=== PATIENT | male | born 1940 | race Caucasian/White ===

== ENCOUNTER 2018-04-09 12:02 | Inpatient (IN) | payer OTHER, MEDICARE ==
[~2018-04-09] VITALS: Ht 160 cm; Wt 73.8 kg
[2018-04-09 12:14] VITALS: BP 105/55; PULSE 67; RESP 20; TEMP 98.2; O2SAT 95
[2018-04-09 12:22] VITALS: BP 105/55; PULSE 67; RESP 20; TEMP 98.2; O2SAT 95
[2018-04-09] MEDS ORDERED: LORazepam 2 MG/ML VIAL IM ONE (13:00)
[2018-04-09 13:01] LABS: AUTOMATED NEUTROPHIL # 5.2 TH/MM3 (1.8-7.7); BASOPHIL # 0.1 TH/MM3 (0-0.2); BASOPHIL % 0.7 % (0.0-2.0); EOSINOPHIL # 1.1 TH/MM3 (0-0.4); HEMATOCRIT 42.4 % (39.0-51.0); HEMOGLOBIN 14.7 GM/DL (13.0-17.0); LYMPH % 23.6 % (9.0-44.0); LYMPHOCYTE # 2.2 TH/MM3 (1.0-4.8); MEAN CELL VOLUME 103.2 FL (80.0-100.0); MEAN CORPUSCULAR HEMOGLOBIN 35.7 PG (27.0-34.0); MEAN CORPUSCULAR HGB CONC 34.6 % (32.0-36.0); MEAN PLATELET VOLUME 6.8 FL (7.0-11.0); MONOCYTE # 0.6 TH/MM3 (0-0.9); NEUT % 56.7 % (16.0-70.0); PLATELET COUNT 221 TH/MM3 (150-450); RED CELL DISTRIBUTION WIDTH 14.2 % (11.6-17.2); WHITE BLOOD COUNT 9.1 TH/MM3 (4.0-11.0)
[2018-04-09] MEDS ORDERED: HALOPERIDOL LACTATE 5 MG/ML AMP IM ONE (13:15)
[2018-04-09 13:26] LABS: ALBUMIN 3.8 GM/DL (3.4-5.0); AST (GOT) 26 U/L (15-37); BICARBONATE 25.7 MEQ/L (21.0-32.0); BLOOD UREA NITROGEN 7 MG/DL (7-18); CALCIUM 8.8 MG/DL (8.5-10.1); CHLORIDE 107 MEQ/L (98-107); CREATININE 1.25 MG/DL (0.60-1.30); GLOMERULAR FILTRATION RATE 56 ML/MIN (>89); GLUCOSE,RANDOM 102 MG/DL (74-106); SODIUM (NA) 142 MEQ/L (136-145)
--- NOTE | 2018-04-09 13:28 | PD ---
HPI Chief Complaint: Psychiatric Symptoms Time Seen by Provider: 12:21 Travel History International Travel<30 days: No Contact w/Intl Traveler<30days: No Traveled to known affect area: No History of Present Illness HPI 77-year-old male that presents to the ED via police for Aguilar act. Patient himself is not a good historian and is very aggressive and will not cooperate with us. Patient apparently was Aguilar acted because he has been having episodes of possible dementia. Per the Aguilar act itself apparently patient tried to get money out of a bank account and no longer exists. Patient apparently also has been off his medications for about a month per report given by power of cartographic aide who is the stepdaughter. Apparently power of cartographic aide does not know what medications he takes. Patient apparently has been acting somewhat confused and will not collaborate with family and apparently there were trying to get him situated for possible placement but that will not take him because he has never been diagnosed with dementia. Patient himself voices no complaints and states that "I want to go home ". If he still anything else he curses at staff and does not seem to be wanting to cooperate. History is limited because of the patient's confusion and unwillingness to cooperate. Most of the history obtained is from the Aguilar act and from the report I was given by ED nurse from talking to the power of cartographic aide. PFSH Past Medical History Hx Anticoagulant Therapy: No Cardiovascular Problems: No Chemotherapy: No Cerebrovascular Accident: No Diabetes: No Respiratory: No Past Surgical History Hysterectomy: No Social History Alcohol Use: No Tobacco Use: No Substance Use: No Allergies-Medications (Allergen,Severity, Reaction): Coded Allergies: No Known Allergies (Verified Allergy, Unknown, 04/09/18) Review of Systems ROS Limitations: Uncooperative, Poor Historian Except as stated in HPI: all other systems reviewed are Neg Physical Exam Exam Limitations: Poor Historian, Uncooperative Narrative GENERAL: SKIN: Warm and dry. HEAD: Atraumatic. Normocephalic. EYES: Pupils equal and round. No scleral icterus. No injection or drainage. ENT: No nasal bleeding or discharge. Mucous membranes pink and moist. Tongue is midline. No uvula deviation. NECK: Trachea midline. No JVD. CARDIOVASCULAR: Regular rate and rhythm. No murmurs, S3, S4. RESPIRATORY: No accessory muscle use. Clear to auscultation. Breath sounds equal bilaterally. GASTROINTESTINAL: Abdomen soft, non-tender, nondistended. Hepatic and splenic margins not palpable. MUSCULOSKELETAL: Extremities without clubbing, cyanosis, or edema. No obvious deformities. Full range of motion of the upper and lower extremities bilaterally. 2+ pulses bilaterally. NEUROLOGICAL: Awake and alert and oriented to person and place. No obvious cranial nerve deficits. Motor grossly within normal limits. Five out of 5 muscle strength in the arms and legs. Normal speech. PSYCHIATRIC: Demented mood and affect; insight and judgment minimal Data Data Last Documented VS Vital Signs Date Time Temp Pulse Resp B/P (MAP) Pulse Ox O2 Delivery O2 Flow Rate FiO2 04/09/18 12:22 98.2 67 20 105/55 (72) 95 Room Air Orders Orders Complete Blood Count With Diff (04/09/18 12:48) Comprehensive Metabolic Panel (04/09/18 12:48) Thyroid Stimulating Hormone (04/09/18 12:48) Urinalysis - C+S If Indicated (04/09/18 12:48) Iv Access Insert/Monitor (04/09/18 12:48) Psych Screen (04/09/18 12:48) Drug Screen, Random Urine (04/09/18 12:48) Alcohol (Ethanol) (04/09/18 12:48) Ct Brain W/O Iv Contrast(Rout) (04/09/18 ) Lorazepam Inj (Ativan Inj) (04/09/18 13:00) ^ Sitter (04/09/18 13:02) Restraints Violent (04/09/18 13:08) Haloperidol Inj (Haldol Inj) (04/09/18 13:15) Labs Laboratory Tests Test 04/09/18 12:30 White Blood Count 9.1 TH/MM3 Red Blood Count 4.10 MIL/MM3 Hemoglobin 14.7 GM/DL Hematocrit 42.4 % Mean Corpuscular Volume 103.2 FL Mean Corpuscular Hemoglobin 35.7 PG Mean Corpuscular Hemoglobin Concent 34.6 % Red Cell Distribution Width 14.2 % Platelet Count 221 TH/MM3 Mean Platelet Volume 6.8 FL Neutrophils (%) (Auto) 56.7 % Lymphocytes (%) (Auto) 23.6 % Monocytes (%) (Auto) 7.0 % Eosinophils (%) (Auto) 12.0 % Basophils (%) (Auto) 0.7 % Neutrophils # (Auto) 5.2 TH/MM3 Lymphocytes # (Auto) 2.2 TH/MM3 Monocytes # (Auto) 0.6 TH/MM3 Eosinophils # (Auto) 1.1 TH/MM3 Basophils # (Auto) 0.1 TH/MM3 CBC Comment DIFF FINAL Differential Comment Blood Urea Nitrogen 7 MG/DL Creatinine 1.25 MG/DL Random Glucose 102 MG/DL Total Protein 8.2 GM/DL Albumin 3.8 GM/DL Calcium Level 8.8 MG/DL Alkaline Phosphatase 116 U/L Aspartate Amino Transf (AST/SGOT) 26 U/L Alanine Aminotransferase (ALT/SGPT) 21 U/L Total Bilirubin 1.4 MG/DL Sodium Level 142 MEQ/L Potassium Level 4.3 MEQ/L Chloride Level 107 MEQ/L Carbon Dioxide Level 25.7 MEQ/L Anion Gap 9 MEQ/L Estimat Glomerular Filtration Rate 56 ML/MIN Thyroid Stimulating Hormone 3rd Gen 3.390 uIU/ML Ethyl Alcohol Level LESS THAN 3 MG/DL MDM Medical Decision Making Medical Screen Exam Complete: Yes Emergency Medical Condition: Yes Medical Record Reviewed: Yes Interpretation(s) CBC & BMP Diagram 04/09/18 12:30 Total Protein 8.2, Albumin 3.8, Calcium Level 8.8, Alkaline Phosphatase 116, Aspartate Amino Transf (AST/SGOT) 26, Alanine Aminotransferase (ALT/SGPT) 21, Total Bilirubin 1.4 H alcohol negative Last Impressions Head CT 04/09/18 0000 Signed Impressions: CONCLUSION: 1. No acute infarct, acute hemorrhage, midline shift or extra-axial fluid heath ections. 2. Diffuse cerebral atrophy which is slightly worse on the left than the right . 3. Mild periventricular and subcortical white matter small vessel ischemic naila nges bilaterally. Differential Diagnosis Depression versus suicidal ideation versus anxiety versus adjustment disorder versus mood disorder versus bipolar disorder versus schizophrenia versus paranoid disorder versus psychosis versus substance abuse versus alcohol abuse versus alcohol induced psychosis versus homicidality addition versus cutting versus personality disorder Narrative Course 77-year-old male the presents to the ED for evaluation of Aguilar act. Patient was properly examined and was found to have signs and symptoms consistent with possible dementia. Patient has never been diagnosed with this. He does appear to be confused but is really hard to get any history from him as he himself will not collaborate with us and if his told something that is not to his liking he curses at staff. Patient unfortunately had to be restrained because he could not collaborate with us. He was given IV IM medications including Ativan and Haldol as per my attending Dr. Barbosa's recommendations. Labs were ordered. CT scan will be ordered to rule out any sign of acute medical condition causing the patient's symptoms although I believe that this is more likely related to dementia. Patient will be medically clear once labs and imaging came back. Labs and imaging were essentially unremarkable. Patient more cooperative after medications given. Restraints were removed. Okay to be seen by psych. Mental health screening was discussed with the patient. Diagnosis Primary Impression: Dementia with behavioral disturbance Qualified Codes: G30.9 - Alzheimer's disease, unspecified; F02.81 - Dementia in other diseases classified elsewhere with behavioral disturbance Hollis Man Apr 09, 2018 13:28
[2018-04-09 13:37] LABS: ALKALINE PHOSPHATASE 116 U/L (45-117); ALT (GPT) 21 U/L (12-78); TOTAL BILIRUBIN ADULT 1.4 MG/DL (0.2-1.0); TOTAL PROTEIN 8.2 GM/DL (6.4-8.2)
--- NOTE | 2018-04-09 14:46 | RADRPT ---
EXAM DATE: 04/09/2018 2:39 PM EDT AGE/SEX: 77 years / Male INDICATIONS: Altered mental status. CLINICAL DATA: This is the patient's initial encounter. Patient reports that signs and symptoms have been present for 1 day and indicates a pain score of Nonresponsive. MEDICAL/SURGICAL HISTORY: Non-responsive. Non-responsive. RADIATION DOSE: 66.35 CTDI (mGy) COMPARISON: No prior exams available for comparison. TECHNIQUE: CT of the head without contrast. Using automated exposure control and adjustment of the mA and/or kV according to patient size, radiation dose was kept as low as reasonably achievable to ob tain optimal diagnostic quality images. FINDINGS: Cerebrum: Diffuse cerebral atrophy is noted and is slightly worse on the left than the right. Mild p eriventricular and subcortical white matter small vessel ischemic changes are noted bilaterally. No e vidence of midline shift, mass lesion, hemorrhage or acute infarction. No extraaxial fluid collectio ns are seen. Posterior Fossa: The cerebellum and brainstem are intact. The 4th ventricle is midline. The cerebe llopontine angle is unremarkable. Extracranial: The visualized portion of the orbits is intact. Skull: The calvaria is intact. No evidence of skull fracture. CONCLUSION: 1. No acute infarct, acute hemorrhage, midline shift or extra-axial fluid collections. 2. Diffuse cerebral atrophy which is slightly worse on the left than the right. 3. Mild periventricular and subcortical white matter small vessel ischemic changes bilaterally. Electronically signed by: Favian Keane MD 04/09/2018 2:45 PM EDT
[2018-04-09 15:22] VITALS: BP 93/50; PULSE 59; RESP 18; O2SAT 95
[2018-04-09 17:45] VITALS: BP 91/45; PULSE 67; RESP 18; O2SAT 97
[2018-04-09 20:51] VITALS: BP 106/53; PULSE 65; RESP 16; O2SAT 96
[2018-04-09 23:00] VITALS: BP 108/53; PULSE 60; RESP 15; TEMP 97.5; O2SAT 92
[2018-04-09] MEDS ORDERED: hydrOXYzine HCL 50 MG TAB PO PRN (23:30)
[2018-04-09] MEDS ORDERED: ALUMINUM/MAGNESIUM/SIMETH 30 ML CUP PO PRN (23:30)
[2018-04-09] MEDS ORDERED: diphenhydrAMINE HCL 50 MG CAP - HS PRN PO (23:30)
[2018-04-09] MEDS ORDERED: ACETAMINOPHEN 325 MG TAB PO PRN (23:30)
[2018-04-09] MEDS ORDERED: diphenhydrAMINE HCL 50 MG/ML VIAL - HS PRN IM (23:30)
[2018-04-09] MEDS ORDERED: MAGNESIUM HYDROXIDE SUSP 30 ML CUP PO PRN (23:30)
[2018-04-10 06:06] VITALS: BP 132/63; PULSE 49; RESP 18; TEMP 98.6; O2SAT 94
[2018-04-10 07:26] LABS: BLOOD UREA NITROGEN 10 MG/DL (7-18); CALCIUM 8.3 MG/DL (8.5-10.1); CHLORIDE 107 MEQ/L (98-107); CHOLESTEROL 148 MG/DL (120-200); CREATININE 1.02 MG/DL (0.60-1.30); GLOMERULAR FILTRATION RATE 70 ML/MIN (>89); GLUCOSE,RANDOM 93 MG/DL (74-106); SODIUM (NA) 141 MEQ/L (136-145); TRIGLYCERIDES 156 MG/DL (42-150)
[2018-04-10 07:27] LABS: CHOLESTEROL/ HDL RATIO 6.54 RATIO; HDL CHOLESTEROL 22.6 MG/DL (40.0-60.0); LDL CHOLESTEROL 94 MG/DL (0-99)
[2018-04-10] MEDS: NICOTINE 21 MG/24 HR PATCH T-DERMAL SCH (08:49)
--- NOTE | 2018-04-10 11:46 | PD.CONS ---
HPI Service [facility] Hospitalists Consult Requested By Dr. Sanabria Reason for Consult Medical Management Primary Care Physician Unknown Diagnoses: History of Present Illness 77-year-old male with history of dementia admitted to inpatient psychiatry under Aguilar act after multiple episodes of confusion. Reportedly the patient drove himself to the bank, attempted to withdraw money out of a bank account that does not exist, then was unable to remember his home address, brought in by police. Hospitalist consulted for medical management. Patient is seen eating his lunch in the day room. He is oriented to self only and is unable to tell me the events leading up to his admission. He has no medical complaints including no headache, lightheadedness, dizziness, chest pain, palpitations, shortness of breath, abdominal pain, or urinary complaints. He denies any medical history. He denies taking any medications on a daily basis. He denies any prior surgeries. He states he quit smoking and drinking 40+ years ago. Vital signs reviewed and stable. He is tolerating oral intake. Discussed with RN, no acute concerns. Review of Systems ROS Limitations: Poor Historian Except as stated in HPI: all other systems reviewed are Neg Past Family Social History Allergies: Coded Allergies: No Known Allergies (Verified Allergy, Unknown, 04/09/18) Past Medical History Dementia Past Surgical History Patient denies any prior surgeries Reported Medications Patient denies taking any medications on a regular basis Active Ordered Medications Current Medications Medications (Trade) Dose Ordered Sig/Esther Route Start Time Stop Time Status Last Admin (Atarax) 50 mg Q6H PRN PO 04/09/18 23:30 (Benadryl) 50 mg HS PRN PO 04/09/18 23:30 (Benadryl Inj) 50 mg HS PRN IM 04/09/18 23:30 (Tylenol) 650 mg Q4H PRN PO 04/09/18 23:30 (Milk Of Magnesia Liq) 30 ml DAILY PRN PO 04/09/18 23:30 (Mag-Al Plus Susp Liq) 30 ml Q6H PRN PO 04/09/18 23:30 (Habitrol 21 Mg Patch.24 Hr) 1 patch DAILY T-DERMAL 04/10/18 09:00 Miscellaneous Information 1 HS T-DERMAL 04/10/18 21:00 Family History Father with heart disease, alcoholism, Mother of "old age", at age 84 Social History Prior tobacco use, quit 40+ years ago Prior heavy alcohol use, quit many years ago Denies any illicit drug use Physical Exam Vital Signs Vital Signs Date Time Temp Pulse Resp B/P (MAP) Pulse Ox O2 Delivery O2 Flow Rate FiO2 04/10/18 06:06 98.6 49 18 132/63 (86) 94 04/09/18 23:00 97.5 60 15 108/53 (71) 92 04/09/18 22:50 04/09/18 20:51 65 16 106/53 (70) 96 Room Air 04/09/18 17:45 67 18 91/45 (60) 97 Room Air 04/09/18 15:22 59 18 93/50 (64) 95 Room Air 04/09/18 12:22 98.2 67 20 105/55 (72) 95 Room Air 04/09/18 12:14 98.2 67 20 105/55 (72) 95 Physical Exam GENERAL: Well-nourished, well-developed pleasantly confused elderly male patient in [facility]. SKIN: Warm and dry. No rash. HEENT: Normocephalic. Atraumatic. Pupils equal and round. Mucous membranes pink and moist. NECK: Supple. Trachea midline. CARDIOVASCULAR: Regular rate and rhythm. No murmur appreciated. RESPIRATORY: No accessory muscle use. Clear to auscultation. Breath sounds equal bilaterally. GASTROINTESTINAL: Abdomen soft, non-tender, nondistended. Normoactive bowel sounds x4. MUSCULOSKELETAL: No obvious deformities. Extremities without clubbing, cyanosis , or edema. NEUROLOGICAL: Awake and alert, oriented to self only. No obvious cranial nerve deficits. Motor grossly within normal limits. Moving all extremities spontaneously. Normal speech. PSYCHIATRIC: Appropriate mood and affect; insight and judgment limited. Laboratory Laboratory Tests Test 04/09/18 12:30 04/10/18 06:45 White Blood Count 9.1 Red Blood Count 4.10 Hemoglobin 14.7 Hematocrit 42.4 Mean Corpuscular Volume 103.2 Mean Corpuscular Hemoglobin 35.7 Mean Corpuscular Hemoglobin Concent 34.6 Red Cell Distribution Width 14.2 Platelet Count 221 Mean Platelet Volume 6.8 Neutrophils (%) (Auto) 56.7 Lymphocytes (%) (Auto) 23.6 Monocytes (%) (Auto) 7.0 Eosinophils (%) (Auto) 12.0 Basophils (%) (Auto) 0.7 Neutrophils # (Auto) 5.2 Lymphocytes # (Auto) 2.2 Monocytes # (Auto) 0.6 Eosinophils # (Auto) 1.1 Basophils # (Auto) 0.1 CBC Comment DIFF FINAL Differential Comment Blood Urea Nitrogen 7 10 Creatinine 1.25 1.02 Random Glucose 102 93 Total Protein 8.2 Albumin 3.8 Calcium Level 8.8 8.3 Alkaline Phosphatase 116 Aspartate Amino Transf (AST/SGOT) 26 Alanine Aminotransferase (ALT/SGPT) 21 Total Bilirubin 1.4 Sodium Level 142 141 Potassium Level 4.3 4.1 Chloride Level 107 107 Carbon Dioxide Level 25.7 26.0 Anion Gap 9 8 Estimat Glomerular Filtration Rate 56 70 Thyroid Stimulating Hormone 3rd Gen 3.390 Ethyl Alcohol Level LESS THAN 3 Triglycerides Level 156 Cholesterol Level 148 LDL Cholesterol 94 HDL Cholesterol 22.6 Cholesterol/HDL Ratio 6.54 Result Diagram: 04/09/18 1230 04/10/18 0645 Imaging Last Impressions Head CT 04/09/18 0000 Signed Impressions: CONCLUSION: 1. No acute infarct, acute hemorrhage, midline shift or extra-axial fluid heath ections. 2. Diffuse cerebral atrophy which is slightly worse on the left than the right . 3. Mild periventricular and subcortical white matter small vessel ischemic naila nges bilaterally. Assessment and Plan Problem List: (1) Dementia with behavioral disturbance ICD Code: F03.91 - Unspecified dementia with behavioral disturbance Status: Acute Assessment and Plan 77-year-old male with history of dementia admitted to inpatient psychiatry under Be Here act after multiple episodes of confusion. Reportedly the patient drove himself to the bank, attempted to withdraw money out of a bank account that does not exist, then was unable to remember his home address, brought in by police. Hospitalist consulted for medical management. Dementia with behavioral disturbances: brought in under Be Here act -Head CT reviewed, no acute findings, shows diffuse cerebral atrophy, mild periventricular and subcortical white matter small vessel ischemic changes bilaterally -CBC, CMP, Etoh, TSH, reviewed and unremarkable -Check UA to rule out UTI -Overall appears medically stable -Continue management per psychiatry DVT Prophylaxis: patient is ambulatory Discussed Condition With Patient, RN Staci Barksdale PA-C Apr 10, 2018 11:46 am
[2018-04-10] MEDS ORDERED: hydrOXYzine HCL 50 MG TAB PO PRN (13:45)
[2018-04-10] MEDS ORDERED: diphenhydrAMINE HCL 50 MG CAP PO PRN (13:45)
--- NOTE | 2018-04-10 14:05 | HHI.HP ---
Provisional Diagnosis Admission Date Apr 09, 2018 at 22:34 [place]. Alzheimer's disease with late onset, dementia with behavioral disturbance Certification of Person's Competence To Provide Express and Informed Consent I have personally examined Lance Davila , a person being served at [facility] on, Apr 10, 2018 13:49. Express and informed consent means consent voluntarily given in writing, by a competent person, after sufficient explanation and disclosure of the subject matter involved to enable the person to make a knowing and willful decision without any element of force, fraud, deceit, duress, or other form of constraint or coercion. This person is 18 years of age or older, is not now known to be incompetent to consent to treatment with a guardian advocate, and does not have a health care surrogate or proxy currently making medical treatment decisions. I have found this person to be one of the following: [] Competent to provide express and informed consent, as defined above, for voluntary admission to this facility and is competent to provide express and informed consent for treatment. He/she has the consistent capacity to make well reasoned, willful, and knowing decisions concerning his or her medical or mental health treatment. The person fully and consistently understands the purpose of the admission for examination/placement and is fully capable of personally exercising all rights assured [place]xxx] Incompetent to provide express and informed consent to voluntary admission , and this is incompetent to provide express and informed consent to treatment. The person must be transferred to involuntary status and a petition for a guardian advocate filed with the Circuit Court. [] Refusing to provide express and informed consent to voluntary admission but is competent to provide express and informed consent for treatment. The person must be discharged or transferred to involuntary status. Form shall be completed within 24 hours of a person's arrival at the receiving facility and filed in the clinical record of each person: 1. Admitted on a voluntary basis 2. Permitted to provide express and informed consent to his/her own treatment 3. Allowed to transfer from involuntary to voluntary status 4. Prior to permitting a person to consent to his or her own treatment after having been previously found incompetent to consent to treatment. History of Present Illness Capacity: Lacks Capacity HPI Patient there is a 77-year-old white male comes here under a Aguilar act by the ED PD that document reviewed essentially is stating patient is trying signs of severe dementia to days in a row he drove himself to the [employer] to attempt to gets money from him and account which she does not exist he was unable to remember his home address or that he had already been to the [place] and spoke with officers he refused a voluntary evaluation and could not remember why the police were talking to him. Patient seen screen in the ED urine toxicology negative blood alcohol level negative. At the present time patient sitting quietly in the day room nurse Dana present throughout session. He is an alert diffusely confused short stocky balding white male who appears about his stated age. He does not remember the events surrounding his being Aguilar acted. He does acknowledge being 16 years being for a number of years to lady was his first but he was her second . There is children by her first marriage. It appears she is still in contact with them. Patient denies any prior psychiatric contact hospitalization psychotropic medication. Patient has a somewhat grandiose almost childlike response to things. He says in the past she was of fairly heavy alcohol user but stopped it cold turkey he states the past was a heavy tobacco user but stopped them cold turkey. He states she is in the [employer] in the 1950s but did not see combat. Denies any physical or sexual abuse. Denies any any mental health issues are his addictions in his family. At the present time patient does meet criteria for involuntary psychiatric hospitalization of the Aguilar act L the first opinion request second opinion. I feel he does not have capacity thus I will ask for health care surrogate and guardian advocate. We will have the hospitalist consult will S will have PT and OT consult will us. We will there is a document of a living will and surrogate and advanced healthcare directives for this gentleman it appears the advanced directives do call for DO NOT RESUSCITATE. Review of Systems Except as stated in HPI: all other systems reviewed are Neg Past Psych History Psychological trauma history Patient denies Violence risk - others (6 mos) Low Violence risk - self (6 mos) Low Substance Abuse History Drugs/Alcohol past 12 months Patient denies Past Family Social History Coded Allergies: No Known Allergies (Verified Allergy, Unknown, 04/09/18) No Active Prescriptions or Reported Meds Current Medications Medications (Trade) Dose Ordered Sig/Esther Route Start Time Stop Time Status Last Admin (Atarax) 50 mg Q6H PRN PO 04/09/18 23:30 (Benadryl) 50 mg HS PRN PO 04/09/18 23:30 (Benadryl Inj) 50 mg HS PRN IM 04/09/18 23:30 (Tylenol) 650 mg Q4H PRN PO 04/09/18 23:30 (Milk Of Magnesia Liq) 30 ml DAILY PRN PO 04/09/18 23:30 (Mag-Al Plus Susp Liq) 30 ml Q6H PRN PO 04/09/18 23:30 (Habitrol 21 Mg Patch.24 Hr) 1 patch DAILY T-DERMAL 04/10/18 09:00 Miscellaneous Information 1 HS T-DERMAL 04/10/18 21:00 Family Psych History Patient denies Social History Patient 18 years from his first he has stepchildren from his ' s first marriage Patient's Strengths (min. 2) Patient verbal able access healthcare Physical Exam Patient medically cleared ED exam reviewed and agreed with at the present time patient sitting quietly day room he is in no acute distress, is in no respiratory distress, no complaints of chest pain no complaints of abdominal pain patient moving all 4 extremities without difficulty Vital Signs Vital Signs Date Time Temp Pulse Resp B/P (MAP) Pulse Ox O2 Delivery O2 Flow Rate FiO2 04/10/18 06:06 98.6 49 18 132/63 (86) 94 04/09/18 20:51 Room Air I/O 04/10/18 04/10/18 04/11/18 08:00 16:00 00:00 Intake Total 120 ml 240 ml Balance 120 ml 240 ml Lab Results Test 04/10/18 06:45 Blood Urea Nitrogen 10 MG/DL Creatinine 1.02 MG/DL Random Glucose 93 MG/DL Calcium Level 8.3 MG/DL Sodium Level 141 MEQ/L Potassium Level 4.1 MEQ/L Chloride Level 107 MEQ/L Carbon Dioxide Level 26.0 MEQ/L Anion Gap 8 MEQ/L Estimat Glomerular Filtration Rate 70 ML/MIN Triglycerides Level 156 MG/DL Cholesterol Level 148 MG/DL LDL Cholesterol 94 MG/DL HDL Cholesterol 22.6 MG/DL Cholesterol/HDL Ratio 6.54 RATIO Mental Status Examination Appearance: Appropriate Consciousness: Alert Orientation: Person, Place (Vaguely confused), Date/Time (Vaguely confused) Motor Activity: Normal gait Speech: Unremarkable Language: Adequate Fund of Knowledge: Adequate Attention and Concentration: Other (Mildly) Memory: Impaired Mood: Other (Euthymic to somewhat irritable and dysphoric) Affect: Other (Slight decreased range and intensity) Thought Process & Associations: Disorganized Thought Content: Other (Somewhat paranoid) Hallucination Type: None Delusion Type: Paranoid Suicidal Ideation: No Suicidal Plan: No Suicidal Intention: No Homicidal Ideation: No Homicidal Plan: No Homicidal Intention: No Insight: Poor Judgment: Poor Assessment & Plan Problem List: (1) Alzheimer's disease with late onset ICD Codes: G30.1 - Alzheimer's disease with late onset; F02.80 - Dementia in other diseases classified elsewhere without behavioral disturbance (2) Dementia in other diseases classified elsewhere with behavioral disturbance ICD Codes: F02.81 - Dementia in other diseases classified elsewhere with behavioral disturbance Assessment & Plan Estimated LOS: 5-7 days at this time patient does meet criteria for involuntary psychiatric hospitalization on the Aguilar act. I will do first opinion request second opinion. I feel he does not have capacity we will ask for health care surrogate and guardian advocate. We will have hospitalist consult will S will have OT and PT consult will S Discharge Planning To be determined Request HC Surrog/Guard Advoc?: Yes Gene Sanabria MD Apr 10, 2018 14:05
[2018-04-10 16:25] LABS: HEMOGLOBIN A1C 5.6 % (4.3-6.0)
[2018-04-10] MEDS: REMOVE OLD NICOTINE PATCH T-DERMAL SCH (21:00)
[2018-04-11 06:00] VITALS: BP 110/58; PULSE 66; RESP 16; TEMP 97.5; TEMP 97.6; O2SAT 94
[2018-04-11] MEDS: NICOTINE 21 MG/24 HR PATCH T-DERMAL SCH (09:00)
--- NOTE | 2018-04-11 12:48 | HHI.PR ---
Subjective Remarks Follow-up visit for dementia and confusion. Spoke with nurse who does not report any medical concerns, ongoing confusion. Patient is seen and examined ambulating in the in no acute distress. He is asking when he will be able to leave states that he has a house, car, and stepchildren that he must attend to. He is alert and oriented only to self. He denies any dysuria, hematuria, denies any fevers, chills, nausea, vomiting, or diarrhea. Objective Vitals Vital Signs Date Time Temp Pulse Resp B/P (MAP) Pulse Ox O2 Delivery O2 Flow Rate FiO2 04/11/18 06:00 97.6 66 16 110/58 (75) 94 04/11/18 06:00 97.5 66 16 110/58 (75) 94 I/O 04/10/18 04/10/18 04/10/18 04/11/18 04/11/18 04/11/18 07:00 15:00 23:00 07:00 15:00 23:00 Intake Total 360 ml Balance 360 ml Intake Oral 360 ml Result Diagram: 04/09/18 1230 04/10/18 0645 Imaging Last Impressions Head CT 04/09/18 0000 Signed Impressions: CONCLUSION: 1. No acute infarct, acute hemorrhage, midline shift or extra-axial fluid heath ections. 2. Diffuse cerebral atrophy which is slightly worse on the left than the right . 3. Mild periventricular and subcortical white matter small vessel ischemic naila nges bilaterally. Objective Remarks GENERAL: Well-nourished elderly male in no acute distress SKIN: Warm and dry, no open wounds. HEENT: Atraumatic, pupils equal round reactive, mucous membranes moist. NECK: Supple, trachea midline. CARDIOVASCULAR: Regular rate and rhythm without murmurs. RESPIRATORY: Clear to auscultation in all lobes, no rhonchi or wheezes. GASTROINTESTINAL:+ Bowel sounds in all quadrants, abdomen nondistended, soft, no guarding. MUSCULOSKELETAL: Moving all extremities without difficulties, ambulating in the . NEUROLOGICAL: Awake, alert, oriented to self with confusion. No visible cranial nerve deficits, moving all extremities, speech is clear, no facial droop. PSYCHIATRIC: Calm and cooperative. A/P Problem List: (1) Dementia with behavioral disturbance ICD Code: F03.91 - Unspecified dementia with behavioral disturbance Status: Acute Assessment and Plan 77-year-old male with history of dementia admitted to inpatient psychiatry under [place] act after multiple episodes of confusion. Reportedly the patient drove himself to the bank, attempted to withdraw money out of a bank account that does not exist, then was unable to remember his home address, brought in by police. Hospitalist consulted for medical management. Dementia with behavioral disturbances: brought in under [place] act -Head CT reviewed, no acute findings, shows diffuse cerebral atrophy, mild periventricular and subcortical white matter small vessel ischemic changes bilaterally -CBC, CMP, Etoh, TSH, reviewed and unremarkable -Check UA to rule out UTI, order for nursing to collect urine -Overall appears medically stable -Continue management per psychiatry DVT Prophylaxis: patient is ambulatory Discussed with patient and nurse. Most likely will sign off, await urine culture as possible source of confusion. Genevieve Blackwell Apr 11, 2018 12:48
--- NOTE | 2018-04-11 15:01 | PD.PSY.CON ---
Provisional Diagnosis Admission Date Apr 09, 2018 at 22:34 [place]. Alzheimer's disease with late onset, dementia with behavioral disturbance History of Present Illness Service Psychiatry Consult Requested By Psychiatry Reason for Consult Second opinion Primary Care Physician Unknown HPI Patient there is a 77-year-old white male comes here under a [place] act by the ED PD that document reviewed essentially is stating patient is trying signs of severe dementia to days in a row he drove himself to the [employer] to attempt to gets money from him and account which she does not exist he was unable to remember his home address or that he had already been to the [employer] and spoke with officers he refused a voluntary evaluation and could not remember why the police were talking to him. Patient seen screen in the ED urine toxicology negative blood alcohol level negative. At the present time patient sitting quietly in the day room nurse Dana present throughout session. He is an alert diffusely confused short stocky balding white male who appears about his stated age. He does not remember the events surrounding his being [place] acted. He does acknowledge being 16 years being for a number of years to lady was his first but he was her second . There is children by her first marriage. It appears she is still in contact with them. Patient denies any prior psychiatric contact hospitalization psychotropic medication. Patient has a somewhat grandiose almost childlike response to things. He says in the past she was of fairly heavy alcohol user but stopped it cold turkey he states the past was a heavy tobacco user but stopped them cold turkey. He states she is in the [employer] in the 1950s but did not see combat. Denies any physical or sexual abuse. Denies any any mental health issues are his addictions in his family. At the present time patient does meet criteria for involuntary psychiatric hospitalization of the Aguilar act L the first opinion request second opinion. I feel he does not have capacity thus I will ask for health care surrogate and guardian advocate. We will have the hospitalist consult will S will have PT and OT consult will us. We will there is a document of a living will and surrogate and advanced healthcare directives for this gentleman it appears the advanced directives do call for DO NOT RESUSCITATE. The patient is a 77-year-old man, brought to the hospital on the Aguilar act because patient is trying signs of severe dementia to days in a row he drove himself to the [employer] to attempt to gets money from him and account which she does not exist he was unable to remember his home address or that he had already been to the [employer] and spoke with officers he refused a voluntary evaluation and could not remember why the police were talking to him. Consulted to me for second opinion. On psychiatric evaluation the patient is found the recreational area of the unit. Patient is calm, cooperative, pleasantly confused. He says that he is here displaced to be happy. He denies depression, denies anxiety, he is unable to tell me the date and the reason he was brought here. He denies suicidal and homicidal ideation, he denies visual and auditory hallucinations Past Family Social History Coded Allergies: No Known Allergies (Verified Allergy, Unknown, 04/09/18) No Active Prescriptions or Reported Meds Current Medications Medications (Trade) Dose Ordered Sig/Esther Route Start Time Stop Time Status Last Admin (Atarax) 50 mg Q6H PRN PO 04/09/18 23:30 (Benadryl) 50 mg HS PRN PO 04/09/18 23:30 (Benadryl Inj) 50 mg HS PRN IM 04/09/18 23:30 (Tylenol) 650 mg Q4H PRN PO 04/09/18 23:30 (Milk Of Magnesia Liq) 30 ml DAILY PRN PO 04/09/18 23:30 (Mag-Al Plus Susp Liq) 30 ml Q6H PRN PO 04/09/18 23:30 (Habitrol 21 Mg Patch.24 Hr) 1 patch DAILY T-DERMAL 04/10/18 09:00 Miscellaneous Information 1 HS T-DERMAL 04/10/18 21:00 Patient's Strengths (min. 2) Patient verbal able access healthcare Physical Exam Vital Signs Vital Signs Date Time Temp Pulse Resp B/P (MAP) Pulse Ox O2 Delivery O2 Flow Rate FiO2 04/11/18 06:00 97.6 66 16 110/58 (75) 94 04/09/18 20:51 Room Air I/O 04/11/18 04/11/18 04/12/18 08:00 16:00 00:00 Intake Total 240 ml Balance 240 ml Mental Status Examination Appearance: Appropriate Consciousness: Alert Orientation: Person, Place (Vaguely confused), Date/Time (Vaguely confused) Motor Activity: Normal gait Speech: Unremarkable Language: Adequate Fund of Knowledge: Adequate Attention and Concentration: Other (Mildly) Memory: Impaired Mood: Other (Euthymic to somewhat irritable and dysphoric) Affect: Other (Slight decreased range and intensity) Thought Process & Associations: Disorganized Thought Content: Other (Somewhat paranoid) Hallucination Type: None Delusion Type: Paranoid Suicidal Ideation: No Suicidal Plan: No Suicidal Intention: No Homicidal Ideation: No Homicidal Plan: No Homicidal Intention: No Insight: Poor Judgment: Poor Assessment & Plan Problem List: (1) Alzheimer's disease with late onset ICD Codes: G30.1 - Alzheimer's disease with late onset; F02.80 - Dementia in other diseases classified elsewhere without behavioral disturbance (2) Dementia in other diseases classified elsewhere with behavioral disturbance ICD Codes: F02.81 - Dementia in other diseases classified elsewhere with behavioral disturbance Assessment & Plan: I have seen and examined this patient, reviewed documentation, I agree and concur with Dr. Sanabria's assessment and plan. Consult appreciated. Assessment & Plan Estimated LOS: days Request HC Surrog/Guard Advoc?: Yes Kev Simon MD Apr 11, 2018 15:01
[2018-04-11 15:39] LABS: BILIRUBIN, URINE NEG (NEG); BLOOD, URINE NEG (NEG); GLUCOSE,URINE NEG (NEG); KETONE, URINE NEG (NEG); MUCUS URINE FEW /lpf (OCC); NITRITE,URINE NEG (NEG); URINE COLOR Straw (YELLW/STRAW); URINE LEUKOCYTE ESTERASE NEG (NEG)
--- NOTE | 2018-04-11 16:18 | HHI.PYPN ---
Subjective Remarks Patient is seen in day room with medical student Margoth, chart reviewed, patient continues with a somewhat elevated mood intrusive with intense eye contact, appears she is trying to justify his poor memory by saying he voluntarily gave up his memory for days dates and locations etc. So he can just react to things we will add Seroquel 25 mg 9 AM and 2 PM Review of Systems Except as stated in HPI: all other systems reviewed are Neg Mental Status Examination Appearance: Appropriate Consciousness: Alert Orientation: Person, Place (Vaguely confused), Date/Time (Vaguely confused) Motor Activity: Normal gait Speech: Unremarkable Language: Adequate Fund of Knowledge: Adequate Attention and Concentration: Other (Mildly) Memory: Impaired Mood: Other (Euthymic to somewhat irritable and dysphoric) Affect: Other (Slight decreased range and intensity) Thought Process & Associations: Disorganized Thought Content: Other (Somewhat paranoid) Hallucination Type: None Delusion Type: Paranoid Suicidal Ideation: No Suicidal Plan: No Suicidal Intention: No Homicidal Ideation: No Homicidal Plan: No Homicidal Intention: No Insight: Poor Judgment: Poor Results Labs Test 04/11/18 14:15 Urine Color Straw Urine Turbidity CLEAR Urine pH 5.0 Urine Specific [place] 1.004 Urine Protein NEG mg/dL Urine Glucose (UA) NEG mg/dL Urine Ketones NEG mg/dL Urine Occult Blood NEG Urine Nitrite NEG Urine Bilirubin NEG Urine Leukocyte Esterase NEG Urine RBC LESS THAN 1 /hpf Urine WBC LESS THAN 1 /hpf Urine Mucus FEW /lpf Microscopic Urinalysis Comment CULT NOT INDICATED Urine Opiates Screen NEG Urine Barbiturates Screen NEG Urine Amphetamines Screen NEG Urine Benzodiazepines Screen NEG Urine Cocaine Screen NEG Urine Cannabinoids Screen NEG Vitals/IOs Vital Signs Date Time Temp Pulse Resp B/P (MAP) Pulse Ox O2 Delivery O2 Flow Rate FiO2 04/11/18 06:00 97.6 66 16 110/58 (75) 94 04/09/18 20:51 Room Air Intake and Output 04/11/18 04/11/18 04/12/18 08:00 16:00 00:00 Intake Total 240 ml Balance 240 ml Assessment & Plan Problem List: (1) Alzheimer's disease with late onset ICD Codes: G30.1 - Alzheimer's disease with late onset; F02.80 - Dementia in other diseases classified elsewhere without behavioral disturbance (2) Dementia in other diseases classified elsewhere with behavioral disturbance ICD Codes: F02.81 - Dementia in other diseases classified elsewhere with behavioral disturbance Assessment & Plan Estimated LOS: days patient continues demented intrusive with no insight, making a somewhat unique justification for his loss of memory. We will add Seroquel to the medication regimen Justification for Cont. Inpt. At this time patient would decompensate a place to a lower level of care Discharge Planning To be determined Request HC Surrog/Guard Advoc?: Yes Gene Sanabria MD Apr 11, 2018 16:18
[2018-04-11] MEDS: REMOVE OLD NICOTINE PATCH T-DERMAL SCH (20:31)
[2018-04-12 05:55] VITALS: BP 117/64; PULSE 76; RESP 17; TEMP 97.7; O2SAT 91
[2018-04-12] MEDS: QUEtiapine FUMARATE 25 MG TAB PO SCH ×2 (09:13→14:09)
[2018-04-12] MEDS: NICOTINE 21 MG/24 HR PATCH T-DERMAL SCH (09:13)
--- NOTE | 2018-04-12 11:03 | HHI.PR ---
Subjective Remarks Follow-up visit for dementia and confusion. Patient is seen and examined resting in bed, in no acute distress. Denies any pain, fevers, chills, N/V/D, headache, dizziness or cough. He voices no acute concerns or complaints. Objective Vitals Vital Signs Date Time Temp Pulse Resp B/P (MAP) Pulse Ox O2 Delivery O2 Flow Rate FiO2 04/12/18 05:55 97.7 76 17 117/64 (81) 91 I/O 04/11/18 04/11/18 04/11/18 04/12/18 04/12/18 04/12/18 07:00 15:00 23:00 07:00 15:00 23:00 Intake Total 240 ml 240 ml 360 ml Balance 240 ml 240 ml 360 ml Intake Oral 240 ml 240 ml 360 ml Result Diagram: 04/09/18 1230 04/10/18 0645 Imaging Last Impressions Head CT 04/09/18 0000 Signed Impressions: CONCLUSION: 1. No acute infarct, acute hemorrhage, midline shift or extra-axial fluid heath ections. 2. Diffuse cerebral atrophy which is slightly worse on the left than the right . 3. Mild periventricular and subcortical white matter small vessel ischemic naila nges bilaterally. Objective Remarks GENERAL: Well-nourished elderly male in no acute distress SKIN: Warm and dry. HEENT: Atraumatic, pupils equal round, mucous membranes moist. NECK: Trachea midline. CARDIOVASCULAR: Regular rate and rhythm without murmurs. RESPIRATORY: Clear to auscultation in all lobes, no rhonchi or wheezes. GASTROINTESTINAL:+ Bowel sounds in all quadrants, abdomen nondistended, soft. MUSCULOSKELETAL: Moving all extremities without difficulties. NEUROLOGICAL: Awake, alert with confusion. No visible cranial nerve deficits, moving all extremities, speech is clear, no facial droop. PSYCHIATRIC: Calm and cooperative. A/P Problem List: (1) Dementia with behavioral disturbance ICD Code: F03.91 - Unspecified dementia with behavioral disturbance Status: Acute Assessment and Plan 77-year-old male with history of dementia admitted to inpatient psychiatry under [place] act after multiple episodes of confusion. Reportedly the patient drove himself to the bank, attempted to withdraw money out of a bank account that does not exist, then was unable to remember his home address, brought in by police. Hospitalist consulted for medical management. Dementia with behavioral disturbances: brought in under [place] act -Head CT reviewed, no acute findings, shows diffuse cerebral atrophy, mild periventricular and subcortical white matter small vessel ischemic changes bilaterally -CBC, CMP, Etoh, TSH, reviewed and unremarkable -UA negative -Continue management per psychiatry DVT Prophylaxis: patient is ambulatory Discussed with patient and nurse. [facility] will sign off, please reconsult if needed. Thank you. Genevieve Blackwell Apr 12, 2018 11:03
--- NOTE | 2018-04-12 16:05 | HHI.PYPN ---
Subjective Remarks Reviewed electronic medical records, and discussed case with staff. Follow-up was conducted in patient's room with KENNETH Kim present. Patient was found sitting in his chair. When asked why he was admitted to the hospital he states , "I cannot remember but it stunk". When asked how he slept he reports that he cannot remember. He states that he has "not had much of an appetite" but cannot recall why. Consent was obtained for his medications today. He begrudgingly agreed to comply with them. Mental Status Examination Appearance: Appropriate Consciousness: Alert Orientation: Person, Place (Vaguely confused), Date/Time (Vaguely confused) Motor Activity: Normal gait Speech: Unremarkable Language: Adequate Fund of Knowledge: Adequate Attention and Concentration: Other (Mildly) Memory: Impaired Mood: Other (Euthymic to somewhat irritable and dysphoric) Affect: Other (Slight decreased range and intensity) Thought Process & Associations: Disorganized Thought Content: Other (Somewhat paranoid) Hallucination Type: None Delusion Type: Paranoid Suicidal Ideation: No Suicidal Plan: No Suicidal Intention: No Homicidal Ideation: No Homicidal Plan: No Homicidal Intention: No Insight: Poor Judgment: Poor Results Vitals/IOs Vital Signs Date Time Temp Pulse Resp B/P (MAP) Pulse Ox O2 Delivery O2 Flow Rate FiO2 04/12/18 05:55 97.7 76 17 117/64 (81) 91 04/09/18 20:51 Room Air Intake and Output 04/12/18 04/12/18 04/13/18 08:00 16:00 00:00 Intake Total 1200 ml Balance 1200 ml Assessment & Plan Problem List: (1) Alzheimer's disease with late onset ICD Codes: G30.1 - Alzheimer's disease with late onset; F02.80 - Dementia in other diseases classified elsewhere without behavioral disturbance (2) Dementia in other diseases classified elsewhere with behavioral disturbance ICD Codes: F02.81 - Dementia in other diseases classified elsewhere with behavioral disturbance Assessment & Plan Estimated LOS: Patient remains confused. Medication initiated today. Will monitor for improvement in his condition. Days Justification for Cont. Inpt. Moving this patient to a lower level of care would result in decompensation. Discharge planning in progress. Request HC Surrog/Guard Advoc?: Yes Kallie Rowe Apr 12, 2018 16:05
[2018-04-12] MEDS: REMOVE OLD NICOTINE PATCH T-DERMAL SCH (20:57)
[2018-04-13 05:23] VITALS: BP 105/56; PULSE 62; RESP 16; TEMP 98.1; O2SAT 90
[2018-04-13] MEDS: QUEtiapine FUMARATE 25 MG TAB PO SCH ×3 (08:39→13:52)
[2018-04-13] MEDS: NICOTINE 21 MG/24 HR PATCH T-DERMAL SCH (08:39)
--- NOTE | 2018-04-13 15:53 | HHI.PYPN ---
Subjective Remarks Patient was seen and case discussed with nursing. Patient is alert and oriented 1. Per nursing, he was quite agitated this morning. During my interviews initially pleasant but then becomes perseverative on discharge. Insight is quite poor though process is disorganized Mental Status Examination Appearance: Appropriate Consciousness: Alert Orientation: Person Motor Activity: Normal gait Speech: Unremarkable Language: Adequate Fund of Knowledge: Adequate Attention and Concentration: Other (Mildly) Memory: Impaired Mood: Other (Euthymic to somewhat irritable and dysphoric) Affect: Other (Slight decreased range and intensity) Thought Process & Associations: Disorganized Thought Content: Other (Somewhat paranoid) Hallucination Type: None Delusion Type: Paranoid Suicidal Ideation: No Suicidal Plan: No Suicidal Intention: No Homicidal Ideation: No Homicidal Plan: No Homicidal Intention: No Insight: Poor Judgment: Poor Results Vitals/IOs Vital Signs Date Time Temp Pulse Resp B/P (MAP) Pulse Ox O2 Delivery O2 Flow Rate FiO2 04/13/18 05:23 98.1 62 16 105/56 (72) 90 04/09/18 20:51 Room Air Intake and Output 04/13/18 04/13/18 04/14/18 08:00 16:00 00:00 Intake Total 120 ml Balance 120 ml Assessment & Plan Problem List: (1) Alzheimer's disease with late onset ICD Codes: G30.1 - Alzheimer's disease with late onset; F02.80 - Dementia in other diseases classified elsewhere without behavioral disturbance (2) Dementia in other diseases classified elsewhere with behavioral disturbance ICD Codes: F02.81 - Dementia in other diseases classified elsewhere with behavioral disturbance Assessment & Plan Continue current treatment plan Justification for Cont. Inpt. Patient would decompensate in a less restrictive setting Request HC Surrog/Guard Advoc?: Yes Mekhi Hankins DO Apr 13, 2018 15:53
[2018-04-13 18:00] VITALS: BP 128/59; PULSE 68; RESP 16; TEMP 98.7; O2SAT 92
[2018-04-13] MEDS: REMOVE OLD NICOTINE PATCH T-DERMAL SCH (20:31)
[2018-04-14 06:55] VITALS: BP 127/61; PULSE 62; RESP 18; TEMP 97.6; O2SAT 91
[2018-04-14] MEDS: QUEtiapine FUMARATE 25 MG TAB PO SCH ×2 (08:19→13:02)
[2018-04-14] MEDS: NICOTINE 21 MG/24 HR PATCH T-DERMAL SCH (08:19)
--- NOTE | 2018-04-14 12:47 | HHI.PYPN ---
Subjective Remarks Patient was seen and case discussed with nursing. Patient is alert and oriented 2. He is very animated and makes various jokes about himself and the patients around him. He is very perseverative about discharge and becomes angry. Supportive therapy and psychoeducation is not effective concerning the reason for his stay in the circumstances surrounding his admission. Memory is impaired. Compliant with medications Mental Status Examination Appearance: Appropriate Consciousness: Alert Orientation: Person Motor Activity: Normal gait Speech: Unremarkable Language: Adequate Fund of Knowledge: Adequate Attention and Concentration: Other (Mildly) Memory: Impaired Mood: Angry Affect: Irritable Thought Process & Associations: Disorganized Thought Content: Other (Somewhat paranoid) Hallucination Type: None Delusion Type: Paranoid Suicidal Ideation: No Suicidal Plan: No Suicidal Intention: No Homicidal Ideation: No Homicidal Plan: No Homicidal Intention: No Insight: Poor Judgment: Poor Results Vitals/IOs Vital Signs Date Time Temp Pulse Resp B/P (MAP) Pulse Ox O2 Delivery O2 Flow Rate FiO2 04/14/18 06:55 97.6 62 18 127/61 (83) 91 Assessment & Plan Problem List: (1) Alzheimer's disease with late onset ICD Codes: G30.1 - Alzheimer's disease with late onset; F02.80 - Dementia in other diseases classified elsewhere without behavioral disturbance (2) Dementia in other diseases classified elsewhere with behavioral disturbance ICD Codes: F02.81 - Dementia in other diseases classified elsewhere with behavioral disturbance Assessment & Plan Continue current treatment plan Justification for Cont. Inpt. Patient would decompensate in a less restrictive setting Request HC Surrog/Guard Advoc?: Yes Mekhi Hankins DO Apr 14, 2018 12:47
[2018-04-14 17:05] VITALS: BP 122/71; PULSE 86; RESP 16; TEMP 97.4; O2SAT 93
[2018-04-14] MEDS: REMOVE OLD NICOTINE PATCH T-DERMAL SCH (20:17)
[2018-04-15] MEDS ORDERED: LORazepam 2 MG/ML VIAL IM ONE (02:00)
[2018-04-15] MEDS ORDERED: HALOPERIDOL LACTATE 5 MG/ML AMP IM ONE (02:00)
[2018-04-15 06:09] VITALS: BP 123/66; PULSE 73; RESP 17; TEMP 97.7; O2SAT 91
[2018-04-15] MEDS: QUEtiapine FUMARATE 25 MG TAB PO SCH ×3 (08:29→20:00)
[2018-04-15] MEDS: NICOTINE 21 MG/24 HR PATCH T-DERMAL SCH (09:00)
--- NOTE | 2018-04-15 16:24 | HHI.PYPN ---
Subjective Remarks Patient seen with nurse Mari, chart reviewed, patient compliant medication. Patient seen in his room napping and drowsy but arousable to responses continues diffusely confused and disoriented, it appears patient had some out of control behavior last night sustaining an DTO. We will increase scheduled Seroquel to 25 mg 3 times daily Review of Systems Except as stated in HPI: all other systems reviewed are Neg Mental Status Examination Appearance: Appropriate Consciousness: Alert Orientation: Person Motor Activity: Normal gait Speech: Unremarkable Language: Adequate Fund of Knowledge: Adequate Attention and Concentration: Other (Mildly) Memory: Impaired Mood: Angry Affect: Irritable Thought Process & Associations: Disorganized Thought Content: Other (Somewhat paranoid) Hallucination Type: None Delusion Type: Paranoid Suicidal Ideation: No Suicidal Plan: No Suicidal Intention: No Homicidal Ideation: No Homicidal Plan: No Homicidal Intention: No Insight: Poor Judgment: Poor Results Vitals/IOs Vital Signs Date Time Temp Pulse Resp B/P (MAP) Pulse Ox O2 Delivery O2 Flow Rate FiO2 04/15/18 06:09 97.7 73 17 123/66 (85) 91 Intake and Output 04/15/18 04/15/18 04/16/18 08:00 16:00 00:00 Intake Total 240 ml Balance 240 ml Assessment & Plan Problem List: (1) Alzheimer's disease with late onset ICD Codes: G30.1 - Alzheimer's disease with late onset; F02.80 - Dementia in other diseases classified elsewhere without behavioral disturbance (2) Dementia in other diseases classified elsewhere with behavioral disturbance ICD Codes: F02.81 - Dementia in other diseases classified elsewhere with behavioral disturbance Assessment & Plan Estimated LOS: days patient continues diffusely confused disoriented demented, we will some increased behavioral issues at night she medication adjustment above Justification for Cont. Inpt. At this time patient would decompensate a place to the lower level of care Discharge Planning To be determined Request HC Surrog/Guard Advoc?: Yes Gene Sanabria MD Apr 15, 2018 16:24
[2018-04-15 18:57] VITALS: BP 122/71; PULSE 65; RESP 16; TEMP 97.6; O2SAT 90
[2018-04-15] MEDS: REMOVE OLD NICOTINE PATCH T-DERMAL SCH (21:00)
[2018-04-16 06:50] VITALS: BP 98/57; PULSE 92; RESP 16; TEMP 97.3
[2018-04-16] MEDS: NICOTINE 21 MG/24 HR PATCH T-DERMAL SCH (09:00)
[2018-04-16] MEDS: QUEtiapine FUMARATE 25 MG TAB PO SCH (09:00)
[2018-04-16] MEDS ORDERED: SERO25TA PO (11:33)
--- NOTE | 2018-04-16 11:35 | HHI.DS ---
Psychiatry Discharge Summary Inpatient Psychiatric care?: Yes Advance Directive: Yes Mental Health AdvanceDirective: No Health Care Proxy: No Admission Admission Date Apr 09, 2018 at 22:34 Admission Diagnosis: (1) Alzheimer's disease with late onset ICD Code: G30.1 - Alzheimer's disease with late onset; F02.80 - Dementia in other diseases classified elsewhere without behavioral disturbance (2) Dementia in other diseases classified elsewhere with behavioral disturbance ICD Code: F02.81 - Dementia in other diseases classified elsewhere with behavioral disturbance Brief History Patient there is a 77-year-old white male comes here under a Aguilar act by the ED PD that document reviewed essentially is stating patient is trying signs of severe dementia to days in a row he drove himself to the [employer] to attempt to gets money from him and account which she does not exist he was unable to remember his home address or that he had already been to the [facility] and spoke with officers he refused a voluntary evaluation and could not remember why the police were talking to him. Patient seen screen in the ED urine toxicology negative blood alcohol level negative. At the present time patient sitting quietly in the day room nurse Dana present throughout session. He is an alert diffusely confused short stocky balding white male who appears about his stated age. He does not remember the events surrounding his being Aguilar acted. He does acknowledge being 16 years being for a number of years to lady was his first but he was her second . There is children by her first marriage. It appears she is still in contact with them. Patient denies any prior psychiatric contact hospitalization psychotropic medication. Patient has a somewhat grandiose almost childlike response to things. He says in the past she was of fairly heavy alcohol user but stopped it cold turkey he states the past was a heavy tobacco user but stopped them cold turkey. He states she is in the [employer] in the 1950s but did not see combat. Denies any physical or sexual abuse. Denies any any mental health issues are his addictions in his family. At the present time patient does meet criteria for involuntary psychiatric hospitalization of the Aguilar act L the first opinion request second opinion. I feel he does not have capacity thus I will ask for health care surrogate and guardian advocate. We will have the hospitalist consult will S will have PT and OT consult will us. We will there is a document of a living will and surrogate and advanced healthcare directives for this gentleman it appears the advanced directives do call for DO NOT RESUSCITATE. The patient is a 77-year-old man, brought to the hospital on the Aguilar act because patient is trying signs of severe dementia to days in a row he drove himself to the [employer] to attempt to gets money from him and account which she does not exist he was unable to remember his home address or that he had already been to the [facility] and spoke with officers he refused a voluntary evaluation and could not remember why the police were talking to him. Consulted to me for second opinion. On psychiatric evaluation the patient is found the recreational area of the unit. Patient is calm, cooperative, pleasantly confused. He says that he is here displaced to be happy. He denies depression, denies anxiety, he is unable to tell me the date and the reason he was brought here. He denies suicidal and homicidal ideation, he denies visual and auditory hallucinations Tobacco Use In Past 30 Days: No Tobacco Past 30 Days Alcohol Use: Never Hospital Course Patient of course in the hospital was somewhat uneventful there is some irritability mild paranoia and intrusiveness initially with that that softened with us compliance with medication. His cognitive deficits have not changed remains diffusely disoriented to time place and situation. However is no significant behavioral issues. He is a bed available from today if the emergency [facility]. Patient to be discharged today to that facility with Rx times a month to follow-up services through that facility Results Blood Pressure 98 / 57 Vital Signs Date Time Temp Pulse Resp B/P (MAP) Pulse Ox O2 Delivery O2 Flow Rate FiO2 04/16/18 06:50 97.3 92 16 98/57 (71) 04/15/18 18:57 90 Laboratory Results Test 04/10/18 06:45 Cholesterol Level 148 MG/DL (120-200) HDL Cholesterol 22.6 MG/DL (40.0-60.0) Hemoglobin A1c 5.6 % (4.3-6.0) LDL Cholesterol 94 MG/DL (0-99) Triglycerides Level 156 MG/DL (42-150) Summary of Procedures None done Imaging Last Impressions Head CT 04/09/18 0000 Signed Impressions: CONCLUSION: 1. No acute infarct, acute hemorrhage, midline shift or extra-axial fluid heath ections. 2. Diffuse cerebral atrophy which is slightly worse on the left than the right . 3. Mild periventricular and subcortical white matter small vessel ischemic naila nges bilaterally. Pending results at discharge: No Medications # of Antipsychotic meds at D/C: 1 Approp Antipsych med options 1 - Minimum of three failed multiple trials of monotherapy. 2 - Documented plan to taper to monotherapy due to previous use of multiple meds OR cross-taper in progress at D/C. 3 - Documentation of augmentation of Clozapine. 4 - Justification other than those listed in allowable values 1-3, document here : Discharge Discharge Date: Apr 16, 2018 Discharge Diagnosis: (1) Dementia in other diseases classified elsewhere with behavioral disturbance Diagnosis: Principal ICD Code: F02.81 - Dementia in other diseases classified elsewhere with behavioral disturbance (2) Alzheimer's disease with late onset Diagnosis: Principal ICD Code: G30.1 - Alzheimer's disease with late onset; F02.80 - Dementia in other diseases classified elsewhere without behavioral disturbance Pt Condition on Discharge: Stable Discharge Disposition: [facility] Discharge Instructions Diet Instructions: As Tolerated, No Restrictions Activities you can perform: Regular-No Restrictions Scheduled Appointment: [facility] Discharge Time > 30 minutes Mental Status Examination Appearance: Appropriate Consciousness: Alert Orientation: Person Motor Activity: Normal gait Speech: Unremarkable Language: Adequate Fund of Knowledge: Adequate Attention and Concentration: Other (Mildly) Memory: Impaired Mood: Angry Affect: Irritable Thought Process & Associations: Disorganized Thought Content: Other (Somewhat paranoid) Hallucination Type: None Delusion Type: Paranoid Suicidal Ideation: No Suicidal Plan: No Suicidal Intention: No Homicidal Ideation: No Homicidal Plan: No Homicidal Intention: No Insight: Poor Judgment: Poor Discharge/Advance Care Plan Health Problems: (1) Alzheimer's disease with late onset (2) Dementia in other diseases classified elsewhere with behavioral disturbance Goals to promote your health * To prevent worsening of your condition and complications * To maintain your health at the optimal level Directions to meet your goals Take your medications as prescribed Follow your dietary instruction Follow activity as directed Keep your appointments as scheduled Take your immunizations and boosters as scheduled If your symptoms worsen call your PCP, if no PCP go to Urgent Care Center or Emergency Room For 21/05 questions related to your inpatient stay or results of tests pending at discharge, please contact Dr. Gene Sanabria at Smoking is Dangerous to Your Health. Avoid second hand smoking Gene Sanabria MD Apr 16, 2018 11:35
== END 2018-04-16 12:40 | DRG 57 ==
LOC: NEPE 12:02 → NEDA 22:34 → H250 23:00
PROVIDERS: ADMIT Psychiatry & Neurology Psychiatry; ATTEND Psychiatry & Neurology Psychiatry
DX: G30.1 Alzheimer's disease with late onset (principal); F02.81 Dementia in other diseases classified elsewhere, unspecified severity, with behavioral disturbance; Z66 Do not resuscitate; Z82.49 Family history of ischemic heart disease and other diseases of the circulatory system
CPT/HCPCS: 70450; 80048; 80053; 80061; 80307; 81001; 83036; 84443; 85025; 96372; J1630; J2060

== ENCOUNTER 2018-04-17 14:24 | Inpatient (IN) ==
[2018-04-28] MEDS ORDERED: Acetaminophen 325 MG Tablet PO PRN (07:49)
[2018-04-28] MEDS ORDERED: Aluminum/Magnesium/Simethacone Susp 30 ML UDC PO PRN (07:51)
[2018-04-28] MEDS ORDERED: Sod Chloride 0.9% Inj 1,000 ML IV.SIG SCH (08:00)
[2018-04-28] MEDS ORDERED: Furosemide 20 MG Tablet PO SCH (09:00)
[2018-04-28] MEDS: QUEtiapine 25 MG Tablet PO SCH ×3 (13:35→21:01)
--- NOTE | 2018-04-28 17:46 | P.PNPSY ---
Subjective Remarks: Patient was seen and case discussed with nursing. Patient was labile this morning. He is alert and oriented 1. Complaining of mild back pain. Has not needed any ETO's today. Mood today is "terrible." Denies auditory or visual hallucinations Mental Status Examination Appearance: Appropriate Consciousness: Somnolent Orientation: Person Motor Activity: Normal gait Speech: Unremarkable Language: Adequate Fund of Knowledge: Inadequate Attention and Concentration: Easily distracted Memory: Impaired Mood: Appropriate Affect: Labile Thought Process & Associations: Intact, Disorganized Thought Content: Appropriate Hallucination Type: None Delusion Type: None Suicidal Ideation: No Suicidal Plan: No Suicidal Intention: No Homicidal Ideation: No Homicidal Plan: No Homicidal Intention: No Insight: Poor Judgment: Poor Assessment and Plan - Assessment (1) Alzheimer's disease with late onset Code(s): G30.1 - Alzheimer's disease with late onset; F02.80 - Dementia in other diseases classified elsewhere without behavioral disturbance Status: Acute (2) Dementia in other diseases classified elsewhere with behavioral disturbance Code(s): F02.81 - Dementia in other diseases classified elsewhere with behavioral disturbance Status: Acute - Plan Plan: Estimated LOS: [] days Continue current treatment plan Justification for Continued Inpatient Stay: Patient would decompensate in a less restrictive setting
[2018-04-29] MEDS: QUEtiapine 25 MG Tablet PO SCH ×2 (13:15→20:20)
--- NOTE | 2018-04-29 16:55 | P.PNPSY ---
Subjective Remarks: Patient seen and examined with nurse in coverage for Dr. Sanabria. Chart reviewed. Case discussed with nursing staff. Nursing notes that patient's Seroquel dosing is loaded towards the afternoon and evening. Patient was consequently somewhat sedated this morning and his O2 sat dipped to 87%. On my examination today, the patient is calm and ambulating around the unit. I note an area of ecchymosis underneath his right eye, and the nurse reports that this was present at admission. Patient is confused and oriented to person only. He gives the year as 202. No side effects from medications, besides some possible sedation earlier in the day. No physical complaints. Vital Signs Temp Pulse Resp BP Pulse Ox 04/29/18 09:51 16 04/29/18 09:00 96 H 14 97 04/29/18 06:05 97.6 F 77 15 104/61 87 L 04/28/18 20:00 18 04/28/18 18:29 98.6 F 80 18 122/72 95 Intake and Output 04/29/18 04/29/18 04/29/18 06:59 14:59 22:59 Intake Total 960 / 960 Balance 960 / 960 Intake: Oral 960 / 960 Other: # Voids 3 2 Labs reviewed. Review of Systems other (Limited due to mental condition) Mental Status Examination Appearance: Appropriate Consciousness: Alert Orientation: Person Motor Activity: Normal gait, Other (No motor abnormalities noted) Speech: Unremarkable Language: Adequate Fund of Knowledge: Inadequate Attention and Concentration: Easily distracted Memory: Impaired Mood: Appropriate Affect: Blunt Thought Process & Associations: Disorganized (In setting of dementia) Thought Content: Appropriate Hallucination Type: None Delusion Type: None Suicidal Ideation: No Suicidal Plan: No Suicidal Intention: No Homicidal Ideation: No Homicidal Plan: No Homicidal Intention: No Insight: Poor Judgment: Poor Assessment and Plan - Assessment (1) Alzheimer's disease with late onset Code(s): G30.1 - Alzheimer's disease with late onset; F02.80 - Dementia in other diseases classified elsewhere without behavioral disturbance Status: Acute - Plan Plan: Spread Seroquel dosing out throughout the day to lessen morning sedation. Continue to monitor on the inpatient unit. Continue other medications and care as ordered. Justification for Continued Inpatient Stay: Medication change. Risk for decompensation. Discharge Planning: As per Dr. Sanabria (1) Alzheimer's disease with late onset Qualifiers: Dementia behavioral disturbance: with behavioral disturbance Qualified Code(s ): G30.1 - Alzheimer's disease with late onset; F02.81 - Dementia in other diseases classified elsewhere with behavioral disturbance
[2018-04-30] MEDS: QUEtiapine 25 MG Tablet PO SCH ×3 (08:33→21:45)
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
[2018-04-30] MEDS: LORazepam 0.5 MG Tablet PO PRN (17:44)
[2018-05-01] MEDS: QUEtiapine 25 MG Tablet PO SCH ×3 (08:08→20:54)
--- NOTE | 2018-05-01 10:38 | P.PNPSY ---
Subjective Remarks: Patient seen in his room with nurse Maryann, chart reviewed, patient compliant medication, patient discussed with nurse. Patient sitting in his jockey underwear alert diffusely confused and somewhat irritable. Nurse states she has been more irritable and aggressive through the later afternoon. However is not had a bowel movement in a number of days. He is appears to be suffering quite a bit from his constipation. We will order a fleets enema for him Review of Systems All other systems reviewed negative except as stated in HPI Mental Status Examination Appearance: Appropriate Consciousness: Alert Orientation: Person Motor Activity: Other (No abnormal motor movements noted) Speech: Unremarkable Language: Adequate Fund of Knowledge: Inadequate Attention and Concentration: Easily distracted Memory: Impaired Mood: Appropriate Affect: Blunt Thought Process & Associations: Tangential (In setting of dementia) Thought Content: Other (Poverty of thought) Hallucination Type: None Delusion Type: None Suicidal Ideation: No Suicidal Plan: No Suicidal Intention: No Homicidal Ideation: No Homicidal Plan: No Homicidal Intention: No Insight: Poor Judgment: Poor Assessment and Plan - Assessment (1) Alzheimer's disease with late onset Code(s): G30.1 - Alzheimer's disease with late onset; F02.80 - Dementia in other diseases classified elsewhere without behavioral disturbance Status: Acute - Plan Plan: Patient remains diffusely confused and demented, and irritable, episodes of aggressive behavior. Also appears to be quite constipated at this time we will order Justification for Continued Inpatient Stay: At this time patient would decompensate a place to a lower level of care Discharge Planning: To be determined - Attending Attestation I have done the above examination and dictated the above note (1) Alzheimer's disease with late onset Qualifiers: Dementia behavioral disturbance: with behavioral disturbance Qualified Code(s ): G30.1 - Alzheimer's disease with late onset; F02.81 - Dementia in other diseases classified elsewhere with behavioral disturbance
[2018-05-01] MEDS ORDERED: Sod Phosphate/Sod Biphosphate (Adult) Enema 133 ML Bottle RECTAL ONE ×2 (10:43→13:00)
[2018-05-02] MEDS: QUEtiapine 25 MG Tablet PO SCH ×3 (08:37→20:38)
--- NOTE | 2018-05-02 13:10 | P.PNPSY ---
Subjective Remarks: Patient seen in his room with nurse Hanna, patient continues diffusely confused disoriented somewhat irritable focusing on his perceived monies that he has lost or misplaced that he says is $500,000 plus he now does not remember complaining of constipation yesterday stating he is having good bowel movements Review of Systems All other systems reviewed negative except as stated in HPI Mental Status Examination Appearance: Appropriate Consciousness: Alert Orientation: Person Motor Activity: Other (No abnormal motor movements noted) Speech: Unremarkable Language: Adequate Fund of Knowledge: Inadequate Attention and Concentration: Easily distracted Memory: Impaired Mood: Appropriate Affect: Blunt Thought Process & Associations: Tangential (In setting of dementia) Thought Content: Other (Poverty of thought) Hallucination Type: None Delusion Type: None Suicidal Ideation: No Suicidal Plan: No Suicidal Intention: No Homicidal Ideation: No Homicidal Plan: No Homicidal Intention: No Insight: Poor Judgment: Poor Assessment and Plan - Assessment (1) Alzheimer's disease with late onset Code(s): G30.1 - Alzheimer's disease with late onset; F02.80 - Dementia in other diseases classified elsewhere without behavioral disturbance Status: Acute - Plan Plan: Patient remains confused and demented though also alert irritable and somewhat feisty. He has no somatic complaints at the present time, focuses on his perceived financial issues Justification for Continued Inpatient Stay: At this time patient would decompensate a place to a lower level of care Discharge Planning: To be determined (1) Alzheimer's disease with late onset Qualifiers: Dementia behavioral disturbance: with behavioral disturbance Qualified Code(s ): G30.1 - Alzheimer's disease with late onset; F02.81 - Dementia in other diseases classified elsewhere with behavioral disturbance
[2018-05-03] MEDS: QUEtiapine 25 MG Tablet PO SCH ×3 (08:37→21:16)
--- NOTE | 2018-05-03 12:13 | P.PNPSY ---
Subjective Remarks: Patient seen in his room with floor staff, chart reviewed, patient compliant medications, discussed with nurse, patient sitting quietly in his chair though continues somewhat angry and irritable focusing on his need to get out of here so that he can go to the bank and get his 100s of thousands of dollars for now we will increase Seroquel to 50 mg 4 times daily Review of Systems All other systems reviewed negative except as stated in HPI Mental Status Examination Appearance: Appropriate Consciousness: Alert Orientation: Person Motor Activity: Other (No abnormal motor movements noted) Speech: Unremarkable Language: Adequate Fund of Knowledge: Inadequate Attention and Concentration: Easily distracted Memory: Impaired Mood: Appropriate Affect: Blunt Thought Process & Associations: Tangential (In setting of dementia) Thought Content: Other (Poverty of thought) Hallucination Type: None Delusion Type: None Suicidal Ideation: No Suicidal Plan: No Suicidal Intention: No Homicidal Ideation: No Homicidal Plan: No Homicidal Intention: No Insight: Poor Judgment: Poor Assessment and Plan - Assessment (1) Alzheimer's disease with late onset Code(s): G30.1 - Alzheimer's disease with late onset; F02.80 - Dementia in other diseases classified elsewhere without behavioral disturbance Status: Acute - Plan Plan: Patient continues demented confused somewhat irritable and angry and labile see medication adjustment above Justification for Continued Inpatient Stay: At this time patient would decompensate a place to the lower level of care Discharge Planning: To be determined (1) Alzheimer's disease with late onset Qualifiers: Dementia behavioral disturbance: with behavioral disturbance Qualified Code(s ): G30.1 - Alzheimer's disease with late onset; F02.81 - Dementia in other diseases classified elsewhere with behavioral disturbance
[2018-05-03] MEDS: LORazepam 0.5 MG Tablet PO PRN (15:46)
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
[2018-05-04] MEDS: QUEtiapine 25 MG Tablet PO SCH ×4 (08:38→20:19)
--- NOTE | 2018-05-04 17:12 | P.PNPSY ---
Subjective Remarks: Pt seen and discussed with staff. Pt has been cooperative with medications and care. He has been labile and requiring redirection from inappropriate behavior. He has been out of room and in day room socializing. Mental Status Examination Appearance: Appropriate Consciousness: Alert Orientation: Person Motor Activity: Other (No abnormal motor movements noted) Speech: Unremarkable Language: Adequate Fund of Knowledge: Inadequate Attention and Concentration: Easily distracted Memory: Impaired Mood: Appropriate Affect: Labile Thought Process & Associations: Tangential (In setting of dementia) Thought Content: Other (Poverty of thought) Hallucination Type: None Delusion Type: None Suicidal Ideation: No Suicidal Plan: No Suicidal Intention: No Homicidal Ideation: No Homicidal Plan: No Homicidal Intention: No Insight: Poor Judgment: Poor Assessment and Plan - Assessment (1) Alzheimer's disease with late onset Code(s): G30.1 - Alzheimer's disease with late onset; F02.80 - Dementia in other diseases classified elsewhere without behavioral disturbance Status: Acute - Plan Plan: continue current tx plan Justification for Continued Inpatient Stay: risk of decompensation (1) Alzheimer's disease with late onset Qualifiers: Dementia behavioral disturbance: with behavioral disturbance Qualified Code(s ): G30.1 - Alzheimer's disease with late onset; F02.81 - Dementia in other diseases classified elsewhere with behavioral disturbance
[2018-05-05] MEDS: QUEtiapine 25 MG Tablet PO SCH ×4 (08:48→21:21)
--- NOTE | 2018-05-05 10:00 | P.PN ---
Subjective Interval history: Reconsult for pedal edema. Patient seen and examined. Patient is sitting calmly in his room but appears agitated in his responses saying "where the fuck is the stuff in my pockets" and "they can take their breakfast and shove it up their ass". When asked how the swelling in his legs is he states "sucks". He denies any other medical complaints. Denies any cough, chest pain or shortness of breath. Denies any nausea, vomiting or abdominal pain. Hypotensive with BP 91/53 since resuming Lasix. Physical Exam Vital signs: Vital Signs 05/05/18 06:00 Temperature 98.8 F Pulse Rate 82 Respiratory Rate 16 Blood Pressure 91/53 L Pulse Oximetry 92 L Intake & Output 05/04/18 05/05/18 05/05/18 18:59 06:59 18:59 Intake Total 360 / 360 480 / 480 Balance 360 / 360 480 / 480 Intake: Oral 360 / 360 480 / 480 Oral Supplement 0 / 0 Other: # Voids 4 3 # Bowel Movements 2 Narrative: GENERAL: This is an elderly male patient, INAD. Awake and alert. Sitting in chair in room. Confused. SKIN: Warm and dry. HEAD: Atraumatic. Normocephalic. EYES: EOMI. No scleral icterus. No injection or drainage. ENT: No nasal bleeding or discharge. Mucous membranes pink and moist. NECK: Trachea midline. CARDIOVASCULAR: Regular rate and rhythm. RESPIRATORY: Nonlabored. Good air entry. Clear to auscultation. Breath sounds equal bilaterally. GASTROINTESTINAL: Abdomen soft, non-tender, nondistended. +BS. MUSCULOSKELETAL: Extremities without clubbing or cyanosis. Trace to 1+ bilateral lower extremity pitting edema. No obvious deformities. NEUROLOGICAL: Awake and alert. Confused. No obvious cranial nerve deficits. Motor grossly within normal limits. Able to move all extremities spontaneously. Normal speech. PSYCHIATRIC: Calm and cooperative. Results - Labs CBC & Chem 7: 04/21/18 08:22 04/24/18 10:20 Assessment and Plan - Plan 77-year-old white male with past medical history of dementia recently discharged from this hospital, who came back as a Aguilar act secondary to aggressive behavior, threatening and impulsive. He is now admitted to medical psychiatry and for further evaluation. Reconsulted for bilateral pedal edema. Dementia with aggressive behavior -Managed by psychiatry Hypotensive since resuming Lasix -BP not tolerating resumption of Lasix dose. DC Lasix. -monitor for improvement in BP -Also consider increased dose of Seroquel contributing factor to low BP -fall precautions -orthostatics ordered but not done CHF, chronic Mild increase in bilateral lower extremity edema Echocardiogram showed left ventricular systolic function EF 55-60% -resume Lasix 20mg po daily with hold parameters - Discontinue Lasix secondary to low BP -recommend keeping legs elevated KARINA, resolved -Avoid nephrotoxins. -will repeat BMP in 2-3 days secondary to resuming Lasix DVT prop -patient is ambulatory Patient appears stable from hospitalist standpoint. [facility] will sign off. Please reconsult if needed. Discussed Condition With: patient, nursing staff
--- NOTE | 2018-05-05 13:20 | P.PNPSY ---
Subjective Remarks: Pt seen and discussed with staff. He was anxious last night and did not sleep well and disrupted room looking for wallet. He calmed with attarax and rested. He has been compliant with medications. Mental Status Examination Appearance: Appropriate Consciousness: Alert Orientation: Person Motor Activity: Other (No abnormal motor movements noted) Speech: Unremarkable Language: Adequate Fund of Knowledge: Inadequate Attention and Concentration: Easily distracted Memory: Impaired Mood: Appropriate Affect: Labile Thought Process & Associations: Tangential (In setting of dementia) Thought Content: Other (Poverty of thought) Hallucination Type: None Delusion Type: None Suicidal Ideation: No Suicidal Plan: No Suicidal Intention: No Homicidal Ideation: No Homicidal Plan: No Homicidal Intention: No Insight: Poor Judgment: Poor Assessment and Plan - Assessment (1) Alzheimer's disease with late onset Code(s): G30.1 - Alzheimer's disease with late onset; F02.80 - Dementia in other diseases classified elsewhere without behavioral disturbance Status: Acute - Plan Plan: continue current tx plan Justification for Continued Inpatient Stay: risk of decompensation (1) Alzheimer's disease with late onset Qualifiers: Dementia behavioral disturbance: with behavioral disturbance Qualified Code(s ): G30.1 - Alzheimer's disease with late onset; F02.81 - Dementia in other diseases classified elsewhere with behavioral disturbance
[2018-05-05 18:05] LABS: Calcium 8.2 mg/dL (8.5-10.1); Carbon Dioxide 25.5 meq/L (21.0-32.0); Potassium 3.8 meq/L (3.5-5.1)
[2018-05-06 06:21] VITALS: TEMP 98.2
[2018-05-06 09:01] VITALS: RESP 16
[2018-05-06 09:03] VITALS: BP 102/57; PULSE 69; O2SAT 92
[2018-05-06] MEDS: QUEtiapine 25 MG Tablet PO SCH ×2 (09:32→12:21)
--- NOTE | 2018-05-10 14:28 | P.DSPSY ---
Psychiatry Discharge Summary Inpatient Psychiatric care?: Yes Advance Directives: No Reason for Unknown:: Due to Patient Condition Mental Health Advance Directive: No Health Care Proxy: No - Admission Admission Date: April 18, 2018 14:47 - Admission Diagnosis (1) Alzheimer's disease with late onset Code(s): G30.1 - Alzheimer's disease with late onset; F02.80 - Dementia in other diseases classified elsewhere without behavioral disturbance (2) Dementia in other diseases classified elsewhere with behavioral disturbance Code(s): F02.81 - Dementia in other diseases classified elsewhere with behavioral disturbance Brief History: Please see initial psychiatric H&P dictated on 04/18 in the EMR with medical attacks prior programming Tobacco Use In Past 30 Days: No How Often Do You Have a Drink Containing Alcohol: Monthly or less Hospital Course: Patient's hospital course was uneventful he showed compliance with his medication, while who is some intrusiveness need for redirection at times. Overall was no significant behavioral problems, he denied suicidality homicidality voice or visions. Bed is now available at [facility] for this gentleman. Patient to be discharged to that facility with Rx 1 month follow- up services through that facility - Discharge Discharge Date: 05/03/18 - Discharge Diagnosis (1) Alzheimer's disease with late onset Diagnosis: Principal Code(s): G30.1 - Alzheimer's disease with late onset; F02.80 - Dementia in other diseases classified elsewhere without behavioral disturbance Status: Acute (2) Dementia in other diseases classified elsewhere with behavioral disturbance Diagnosis: Principal Code(s): F02.81 - Dementia in other diseases classified elsewhere with behavioral disturbance Status: Acute Discharge Disposition: Assisted Living Facility - Discharge Instructions Discharge Diet: Regular Diet Activities You Can Perform: Regular- No Restrictions - Discharge Time > 30 minutes Mental Status Examination Appearance: Appropriate Consciousness: Alert Orientation: Person Motor Activity: Other (No abnormal motor movements noted) Speech: Unremarkable Language: Adequate Fund of Knowledge: Inadequate Attention and Concentration: Easily distracted Memory: Impaired Mood: Appropriate Affect: Labile Thought Process & Associations: Tangential (In setting of dementia) Thought Content: Other (Poverty of thought) Hallucination Type: None Delusion Type: None Suicidal Ideation: No Suicidal Plan: No Suicidal Intention: No Homicidal Ideation: No Homicidal Plan: No Homicidal Intention: No Insight: Poor Judgment: Poor Discharge/Advance Care Plan - Results Vital Signs: Last Vital Signs Temp 98.2 F 07/09/18 06:00 Pulse 69 05/06/18 09:02 Resp 16 05/06/18 09:02 BP 102/57 L 05/06/18 09:02 Pulse Ox 92 L 05/06/18 09:02 Lab Results: Laboratory Results Hemoglobin A1c 5.5 % (4.3-6.0) 04/21/18 08:22 Triglycerides 117 MG/DL (42-150) 04/19/18 09:22 Cholesterol 157 MG/DL (120-200) 04/19/18 09:22 HDL Cholesterol 32.2 MG/DL (40.0-60.0) L 04/19/18 09:22 Free T4 1.16 NG/DL (0.76-1.46) 04/21/18 08:22 Summary of Procedures: None done Pending Results: None - Medications Number of antipsychotic medications at discharge: 1 - Discharge Care Plan Goals to Promote Your Health: * To prevent worsening of your condition and complications * To maintain your health at the optimal level Directions to Meet Your Goals: Take your medications as prescribed Follow your dietary instruction Follow activity as directed Keep your appointments as scheduled Take your immunizations and boosters as scheduled If your symptoms worsen call your PCP, if no PCP go to Urgent Care Center or Emergency Room For 21/05 questions related to your inpatient stay or results of tests pending at discharge, please contact Dr. Gene Sanabria MD at Smoking is Dangerous to Your Health. Avoid second hand smoking (1) Alzheimer's disease with late onset Qualifiers: Dementia behavioral disturbance: with behavioral disturbance Qualified Code(s ): G30.1 - Alzheimer's disease with late onset; F02.81 - Dementia in other diseases classified elsewhere with behavioral disturbance (1) Alzheimer's disease with late onset Qualifiers: Dementia behavioral disturbance: with behavioral disturbance Qualified Code(s ): G30.1 - Alzheimer's disease with late onset; F02.81 - Dementia in other diseases classified elsewhere with behavioral disturbance
== END 2018-05-06 14:45 ==
LOC: H250 04-18 14:47
PROVIDERS: ADMIT Psychiatry & Neurology Psychiatry; ATTEND Psychiatry & Neurology Psychiatry